=== PATIENT | female | born 1985 | race Caucasian/White ===

== ENCOUNTER 2016-12-28 01:06 | Emergency (ER) | payer SELFPAY ==
[~2016-12-28] VITALS: Ht 162.6 cm; Wt 50.0 kg
[~2016-12-28 01:06] MED LIST: PREN1TAB9 PO
[2016-12-28 01:09] VITALS: Ht 162.6 cm; Wt 50.0 kg
[2016-12-28] MEDS ORDERED: DIPHENHYDRAMINE 50 MG INJ IM ONE (01:30)
[2016-12-28] MEDS ORDERED: BEN50 PO (01:35)
[2016-12-28] MEDS ORDERED: CALAMINE TOP (01:35)
[2016-12-28] MEDS ORDERED: CEPH-443 PO (01:35)
--- NOTE | 2016-12-28 02:04 | ERD ---
ER Documentation Chief Complaint Date/Time DATE: 12/28/16 TIME: 02:00 Chief Complaint BIB SELF, CC: RASH "BED BUGS" SINCE YESTERDAY HPI 31-year-old female presents here in emergency department for complaint of rash all over the body and itching that started yesterday. Patient slept in a hotel, started to have the rash and she woke up. Patient's complaining of itching all over the body is complaining of pain on the rash, burning pain 4/10 scale, is worse upon touching the area. Patient denies any fever or chills. Patient did not take any medications up with symptoms. ROS All systems reviewed and are negative except as per history of present illness. Medications Home Meds Active Scripts Cephalexin* (Keflex*) 500 Mg Capsule, 500 MG PO QID for 10 Days, CAP Prov:COMFORT STEWART NP 12/28/16 Calamine* (Calamine*) 120 Ml Lotion, 1 APPLIC TOP Q4H for RASH, #1 BOT Prov:COMFORT STEWART NP 12/28/16 Diphenhydramine Hcl* (Benadryl*) 50 Mg Cap, 50 MG PO Q6H Y for ITCHING/RASH, # 30 CAP Prov:COMFORT STEWART NP 12/28/16 Reported Medications Vits W-Ca,Fe,Fa(<1MG) ( #2) 1 Tab Tablet, 1 TAB PO DAILY 08/09/13 Allergies Allergies: Coded Allergies: No Known Allergy (Unverified , 08/09/13) PMhx/Soc History of Surgery: Yes (APPENDECTOMY) Anesthesia Reaction: No Hx Neurological Disorder: No Hx Respiratory Disorders: No Hx Cardiac Disorders: No Hx Psychiatric Problems: No Hx Miscellaneous Medical Probl: No Hx Alcohol Use: Yes Hx Substance Use: No Hx Tobacco Use: No Smoking Status: Former smoker FmHx Family History: No coronary disease, No diabetes, No other Physical Exam Vitals Vital Signs Date Time Temp Pulse Resp B/P Pulse Ox O2 Delivery O2 Flow Rate FiO2 12/28/16 01:09 98.6 89 18 128/71 98 Physical Exam GENERAL: The patient is well developed and appropriate for usual state of health, in no apparent distress. CHEST: Clear to auscultation bilaterally. There are no rales, wheezes or rhonchi. HEART: Regular rate and rhythm. No murmurs, clicks, rubs or gallops. No S3 or S4. ABDOMEN: Soft, nontender and nondistended. Good bowel sounds. No rebound or guarding. No gross peritonitis. No gross organomegaly or masses. No Rodriguez sign or McBurney point tenderness. BACK: No midline or flank tenderness. EXTREMITIES: Equal pulses bilaterally. There is no peripheral clubbing, cyanosis or edema. No focal swelling or erythema. Full range of motion. Grossly neurovascularly intact. NEURO: Alert and oriented. Cranial nerves 2-12 intact. Motor strength in all 4 extremities with 5/5 strength. Sensation grossly intact. Normal speech and gait. SKIN: Maculopapular rash noted all over the body with some induration, no fluctuance noted. There is no apparent ecchymosis or petechia. The skin is warm and dry. HEMATOLOGIC AND LYMPHATIC: There is no evidence of excessive bruising or lymphedema. No gross cervical, axillary, or inguinal lymphadenopathy. Results 24 hrs Current Medications Medications (Trade) Dose Ordered Sig/Robert Route PRN Reason Start Time Stop Time Status Last Admin Dose Admin Diphenhydramine HCl (Benadryl) 50 mg ONCE ONCE IM 12/28/16 01:30 12/28/16 01:31 DC 12/28/16 01:38 Benadryl was given here in emergency department. Procedures/MDM Medical decision making: Patient symptoms like it consistent with infected insect bites, most likely is from bug bites. No symptoms of any anaphylaxis, angioedema, anaphylactic shock. No symptoms of any coagulopathies. No symptoms of any sepsis at this time. Patient appears well and is hemodynamically stable. Prescription was given for Benadryl, calamine cream, Keflex, is advised to avoid scratching the area, avoid sleeping in the hotel where she stayed. Patient was advised to follow-up with primary care doctor in 2 days for reevaluation of symptoms. Patient was advised to return to emergency department for any worsening symptoms. Disposition: Home. Stable Departure Diagnosis: Primary Impression: Infected insect bites of multiple sites Condition: Stable Patient Instructions: Insect Sting/Bite, Infected COMFORT STEWART NP Dec 28, 2016 02:04
== END 2016-12-28 02:00 | disposition home or self-care (01) ==
LOC: FTE 01:06
DX: T14.8 Other injury of unspecified body region (principal); W57.XXXA Bitten or stung by nonvenomous insect and other nonvenomous arthropods, initial encounter; Y92.9 Unspecified place or not applicable; Z87.891 Personal history of nicotine dependence
CPT/HCPCS: 96372; 99284; J1200

== ENCOUNTER 2017-09-10 08:28 | Emergency (ER) | END 2017-09-10 10:54 | disposition home or self-care (01) ==

== ENCOUNTER 2018-12-15 03:25 | Emergency (ER) | payer OTHER ==
[~2018-12-15] VITALS: Ht 170.2 cm; Wt 64.0 kg
[~2018-12-15 03:25] MED LIST changes: +ALBU18HF INHALATION; +BEN50 PO; +CALAMINE TOP; +CEPH-443 PO; +IBUP-1542 PO; +QUET200T PO
[2018-12-15 03:37] VITALS: Ht 170.2 cm; Wt 64.0 kg
[2018-12-15] MEDS ORDERED: KETOROLAC 15 MG INJ IM ONE (04:30)
[2018-12-15] MEDS ORDERED: ONDANSETRON (ODT) 4 MG TAB ODT ONE (04:30)
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
[2018-12-15 06:12] VITALS: BP 100/75; PULSE 99; RESP 23
== END 2018-12-15 06:12 | disposition home or self-care (01) ==
LOC: E/R 03:25
DX: S09.90XA Unspecified injury of head, initial encounter (principal); S19.9XXA Unspecified injury of neck, initial encounter; J45.909 Unspecified asthma, uncomplicated; R51 Headache; Y04.1XXA Assault by human bite, initial encounter
CPT/HCPCS: 70450; 72125; 81025; 96372; J1885; Z7502; Z7610